=== PATIENT | female | born 1975 | race Caucasian/White ===

== ENCOUNTER 2022-05-06 12:06 | Emergency (ER) | payer MEDICAID ==
[~2022-05-06] VITALS: Ht 147.3 cm; Wt 88.5 kg
[2022-05-06 12:11] VITALS: BP 124/59
--- NOTE | 2022-05-06 12:18 | NUR ---
Patient ambulated with steady gait to bed 6.
[2022-05-06] MEDS ORDERED: NACL 0.9% 1,000 ML IV SCH (12:35)
[2022-05-06] MEDS ORDERED: KETOROLAC 15 MG/ML VIAL IVP ONE (12:35)
[2022-05-06] MEDS ORDERED: ONDANSETRON 4 MG/2 ML VIAL IVP ONE (12:35)
--- NOTE | 2022-05-06 12:35 | NUR ---
46 y/o female bib daughter for left sided hip pain x 1 month. Patient denies any fall, trauma or injury. Patient has 6/10 sharp pain. Denies fever, chills or SOB. Medical History: DM NKDA
--- NOTE | 2022-05-06 12:49 | NUR ---
46/F PRESENTS TO ED WITH C/O LEFT SIDED HIP PAIN X1 MONTH, PATIENT DENIES INJURY OR TRAUMA, STATES PAIN WORSENS WITH AMBULATION. DENIES NUMBNESS, TINGLING OR SWELLING.
[2022-05-06 13:04] LABS: BASOPHILS % (AUTO) 0.6 % (0.0-2.0); EOSINOPHILS # (AUTO) 0.1 K/uL (0-0.4); EOSINOPHILS % (AUTO) 1.9 % (0.0-4.0); HEMATOCRIT 32.6 % (36-48); HEMOGLOBIN 10.5 g/dL (12.0-16.0); LYMPHOCYTES # (AUTO) 1.5 K/uL (2.5-16.5); LYMPHOCYTES % (AUTO) 28.4 % (20.5-51.1); MEAN CORPUSCULAR HEMOGLOBIN 25 pg (27-31); MEAN CORPUSCULAR HGB CONC 32 g/dL (33-37); MEAN CORPUSCULAR VOLUME 78.2 fL (80-94); MONOCYTES # (AUTO) 0.4 K/uL (0.8-1.0); MONOCYTES % (AUTO) 6.6 % (1.7-9.3); NEUTROPHILS # (AUTO) 3.4 K/uL (1.8-7.7); NEUTROPHILS % (AUTO) 62.5 % (42.2-75.2); PLATELET COUNT (AUTO) 269 K/uL (140-450); RED BLOOD CELL COUNT(AUTO) 4.16 MIL/uL (4.20-5.40); RED CELL DISTRIBUTION WIDTH 16.6 % (11.6-13.7); WHITE BLOOD COUNT (AUTO) 5.4 K/uL (4.8-10.8)
[2022-05-06 13:17] LABS: ALBUMIN 3.3 g/dL (3.4-5.0); ANION GAP 11.7 (8-16); CARBON DIOXIDE 28.2 mmol/L (21-32); CREATININE 0.6 mg/dL (0.6-1.3); POTASSIUM 3.9 mmol/L (3.5-5.1); TOTAL BILIRUBIN 0.3 mg/dL (0.0-1.0)
--- NOTE | 2022-05-06 13:34 | NUR ---
Patient is being taken to imaging via gurney.
--- NOTE | 2022-05-06 13:43 | NUR ---
Patient returned from imaging.
[2022-05-06 14:44] LABS: APPEARANCE,URINE SL CLOUDY (CLEAR); BILIRUBIN,URINE NEGATIVE (NEGATIVE); BLOOD, URINE NEGATIVE (NEGATIVE); COLOR,URINE YELLOW (YELLOW); LEUKOCYTE ESTERASE ,URINE NEGATIVE (NEGATIVE); NITRITE, URINE NEGATIVE (NEGATIVE); UGLUCOSE 1+ (NEGATIVE)
[2022-05-06] MEDS ORDERED: IBUP-2213 PO (15:09)
[2022-05-06] MEDS ORDERED: LOPE-289 PO (15:09)
[2022-05-06] MEDS ORDERED: CIPR500T4 PO (15:09)
--- NOTE | 2022-05-06 15:22 | NUR ---
Patient discharged with v/s stable. Written and verbal after care instructions given. Patient alert, oriented and verbalized understanding of instructions. Ambulatory with steady gait. All questions addressed prior to discharge. ID band removed. Patient advised to follow up with PMD. Rx of Cipro, Ibuprofen and Imodium given. Opportunity to ask questions provided and answered.
[2022-05-06 15:23] VITALS: BP 127/69
--- NOTE | 2022-05-06 15:40 | NUR ---
The patient's care was reviewed and supervised by [facility], RN.
== END 2022-05-06 15:23 | disposition home or self-care (01) ==
LOC: EDSEX 12:06 → MED 12:06
DX: R10.30 Lower abdominal pain, unspecified (principal); R19.7 Diarrhea, unspecified
CPT/HCPCS: 36415; 74176; 80053; 81003; 81025; 83690; 85025; 93005; 96361; 96374; 96375; 99285; J1885; J2405; J7030

== ENCOUNTER 2022-10-14 12:37 | Emergency (ER) | payer MEDICAID ==
[~2022-10-14] VITALS: Ht 157.5 cm; Wt 79.4 kg
[~2022-10-14 12:37] MED LIST: CIPR500T4 PO; IBUP-2213 PO; LOPE-289 PO
[2022-10-14 13:01] VITALS: BP 134/73
--- NOTE | 2022-10-14 13:35 | NUR ---
47YO FEMALE PT C/O LUQ ABD PAIN X1WEEK. REPORTS SUDDEN ONSET W/ PAIN AT MOST ON MOVEMENTS. STATES RECENT GALLBLADDER REMOVAL ON 09/19/22. ABD TENDER TO TOUCH, NON DISTENDED. STATES MILD RELIEF AFTER TYLENOL. DENIES N/V/D, FEVER, CHILLS , CHEST PAIN OR SOB. PT AAOX4, HOB POSITIONED PER COMFORT HX: DIABETES NKA
[2022-10-14 13:45] LABS: BASOPHILS # (AUTO) 0.1 K/uL (0.00-0.22); BASOPHILS % (AUTO) 0.9 % (0.0-2.0); EOSINOPHILS # (AUTO) 0.1 K/uL (0-0.4); EOSINOPHILS % (AUTO) 1.9 % (0.0-4.0); HEMATOCRIT 40.1 % (36-48); HEMOGLOBIN 13.4 g/dL (12.0-16.0); LYMPHOCYTES # (AUTO) 1.7 K/uL (2.5-16.5); LYMPHOCYTES % (AUTO) 22.9 % (20.5-51.1); MEAN CORPUSCULAR HEMOGLOBIN 30 pg (27-31); MEAN CORPUSCULAR HGB CONC 34 g/dL (33-37); MEAN CORPUSCULAR VOLUME 89.9 fL (80-94); MONOCYTES # (AUTO) 0.4 K/uL (0.8-1.0); MONOCYTES % (AUTO) 5.2 % (1.7-9.3); NEUTROPHILS % (AUTO) 69.1 % (42.2-75.2); PLATELET COUNT (AUTO) 299 K/uL (140-450); RED BLOOD CELL COUNT(AUTO) 4.47 MIL/uL (4.20-5.40); RED CELL DISTRIBUTION WIDTH 14.2 % (11.6-13.7); WHITE BLOOD COUNT (AUTO) 7.3 K/uL (4.8-10.8)
[2022-10-14 13:47] LABS: APPEARANCE,URINE CLEAR (CLEAR); BILIRUBIN,URINE NEGATIVE (NEGATIVE); BLOOD, URINE NEGATIVE (NEGATIVE); COLOR,URINE YELLOW (YELLOW); LEUKOCYTE ESTERASE ,URINE NEGATIVE (NEGATIVE); NITRITE, URINE NEGATIVE (NEGATIVE); UGLUCOSE NEGATIVE (NEGATIVE)
--- NOTE | 2022-10-14 14:17 | NUR ---
MD ROMO AT BEDSIDE FOR EVALUATION
[2022-10-14 14:20] LABS: ALBUMIN 3.8 g/dL (3.4-5.0); ANION GAP 11.7 (8-16); CARBON DIOXIDE 31.2 mmol/L (21-32); CREATININE 0.7 mg/dL (0.6-1.3); POTASSIUM 3.9 mmol/L (3.5-5.1); TOTAL BILIRUBIN 0.4 mg/dL (0.0-1.0)
[2022-10-14] MEDS ORDERED: NACL 0.9% 1,000 ML IV SCH (14:25)
[2022-10-14] MEDS ORDERED: KETOROLAC 30 MG/ML VIAL IVP ONE (14:25)
--- NOTE | 2022-10-14 15:02 | NUR ---
PT TAKEN TO CT VIA WHEELCHAIR
--- NOTE | 2022-10-14 15:02 | NUR ---
Brett molina in [facility] - 10/14/22 at 1530 by [facility]SEP PT TAKEN TO CT VIA MAIA
--- NOTE | 2022-10-14 15:12 | NUR ---
PT BROUGHT BACK VIA W/C
[2022-10-14 16:15] VITALS: BP 113/67
--- NOTE | 2022-10-14 16:22 | NUR ---
IV removed, catheter intact and site benign. Applied folded 4x4 gauze and tape to stop bleeding.
[2022-10-14] MEDS ORDERED: ACET-8905 PO (16:24)
[2022-10-14] MEDS ORDERED: IBUP-2213 PO (16:24)
--- NOTE | 2022-10-14 16:37 | NUR ---
Patient discharged with v/s stable. Written and verbal after care instructions FOR ABD PAIN given and explained. Patient alert, oriented and verbalized understanding of instructions. Ambulatory with steady gait. All questions addressed prior to discharge. ID band removed. Patient advised to follow up with PMD. Rx of IBUPROFEN AND HYDROCONE given. Opportunity to ask questions provided and answered.
--- NOTE | 2022-10-14 16:47 | NUR ---
The patient's care was reviewed and supervised by [facility], RN.
== END 2022-10-14 16:37 | disposition home or self-care (01) ==
LOC: MED 12:37
DX: R10.11 Right upper quadrant pain (principal); E11.9 Type 2 diabetes mellitus without complications; Z90.49 Acquired absence of other specified parts of digestive tract; Z79.899 Other long term (current) drug therapy; Z79.1 Long term (current) use of non-steroidal anti-inflammatories (NSAID); Z79.2 Long term (current) use of antibiotics
CPT/HCPCS: 36415; 74177; 80053; 81003; 81025; 83690; 85025; 96374; 99285; J1885; Q9967